=== PATIENT | male | born 1960 | race Caucasian/White ===

== ENCOUNTER → 2017-01-01 | Outpatient (CLI) | payer BC ==
[~2017-01-01] MED LIST: ASPEC81 PO; LPR25 PO; NTRSLP4 SL; SIMV20TA5 PO; VTMB12 PO
--- NOTE | 2017-01-01 11:33 | DIAGNOSTIC IMAGING REPORT ---
CT LUNG SCREENING, LOW DOSE WITH COMPUTER-AIDED DETECTION (CAD) CLINICAL HISTORY: Prolonged tobacco abuse. Lung screening study COMPARISON STUDY: Chest CT dated 08/17/2015 CT DOSE: 80.53 mGycm TECHNIQUE: Low-dose helical CT was acquired without intravenous contrast from lung apices to bases and reconstructed at 2.5 mm every 2 mm. CAD was utilized for this study. A dose lowering technique was utilized adhering to the principles of ALARA. FINDINGS: Thyroid: Imaged portions of the thyroid gland are normal in appearance. Thoracic aorta: The thoracic aorta is normal in course and caliber, noting standard 3 vessel arch anatomy. Heart: There are mild coronary artery calcifications. Lungs and pleural spaces: No pleural effusions are visualized. There is pulmonary emphysema. There is no focal pulmonary consolidation. There are stable low suspicion subpleural and perifissural subcentimeter pulmonary nodules. Mediastinum: There is no mediastinal lymphadenopathy. Ksenia: Clear. Axilla: Clear. Upper abdomen: Partially visualized upper abdominal viscera is within normal limits. Skeletal structures: There are no lytic or blastic osseous lesions. IMPRESSION: Stable low suspicion subpleural and perifissural subcentimeter pulmonary nodules. CAD FINDINGS: Overall Lung RADS Category: 3 Lung RADS Management Recommendation: Lung-RADS 3: Continue screening in 6 months. Lung RADS Follow Up Date: 2017-07-04 Lung RADS Nodule ID: [id number] Electronically signed by: Enrique Loya M.D. 01/01/2017 11:32 AM Dictated Date/Time: 01/01/2017 11:23 AM
== END | disposition home or self-care (01) ==
LOC: C.CTS 09:09
PROVIDERS: ATTEND Family Medicine
DX: Z87.891 Personal history of nicotine dependence (principal)

== ENCOUNTER → 2017-08-06 | Outpatient (CLI) | payer BC ==
--- NOTE | 2017-08-06 11:13 | DIAGNOSTIC IMAGING REPORT ---
CT CT HIGH RISK DIAGNOSTIC CHEST WITH COMPUTER-AIDED DETECTION (CAD) CLINICAL HISTORY: OTHER NON SPECIFIC ABNORMAL FINDING LUNG FIELD COMPARISON STUDY: No previous studies for comparison. CT DOSE: 474.35 mGy.cm TECHNIQUE: Axial images of the chest were obtained without IV contrast. Images were reviewed in the axial, sagittal, and coronal planes. IV contrast was not administered for this examination. A dose lowering technique was utilized adhering to the principles of ALARA. FINDINGS: The thyroid is unremarkable in appearance. The ascending thoracic aorta measures 37 mm. There are minor coronary artery calcifications present. There are multiple gallstones present. No adrenal masses are visualized. There are no pathologically enlarged axillary mediastinal or hilar lymph nodes. There are no pleural effusions. There is pulmonary emphysema. There is no focal pulmonary consolidation. There is stable subcentimeter subpleural and perifissural nodules. IMPRESSION: Stable subcentimeter subpleural and perifissural nodules. Pulmonary emphysema. Resume annual lung cancer screening. CAD FINDINGS: Nodule 1 Category: 2 Nodule 1 Status: Shrinking Nodule 1 Description: Solid Nodule 1 Lesion ID: 3 Nodule 1 Slice Number: [id number] Nodule 1 Volume (mm3): 90 Nodule 1 Major [place] mm: 6.2 Nodule 1 Minor [place] mm: 4.5 Nodule 2 Category: 2 Nodule 2 Status: Shrinking Nodule 2 Description: Solid Nodule 2 Lesion ID: 2 Nodule 2 Slice Number: [id number] Nodule 2 Volume (mm3): 48 Nodule 2 Major [place] mm: 4.8 Nodule 2 Minor [place] mm: 4.0 Nodule 3 Category: 2 Nodule 3 Status: Stable Nodule 3 Description: Solid Nodule 3 Lesion ID: 1 Nodule 3 Slice Number: [id number] Nodule 3 Volume (mm3): 24 Nodule 3 Major [place] mm: 4.5 Nodule 3 Minor [place] mm: 3.4 Overall Lung RADS Category: 2 Lung RADS Management Recommendation: 2 - Resume annual lung cancer screening. Lung RADS Follow Up Date: Lung RADS Nodule ID: [id number] Electronically signed by: Enrique Loya M.D. 08/06/2017 11:12 AM Dictated Date/Time: 08/06/2017 11:02 AM
== END | disposition home or self-care (01) ==
LOC: C.CTS 10:32
PROVIDERS: ATTEND Family Medicine
DX: R91.8 Other nonspecific abnormal finding of lung field (principal); J43.9 Emphysema, unspecified